=== PATIENT | female | born 1990 | race Two or more races ===

== ENCOUNTER 2016-08-06 16:55 | Emergency (ER) | payer OTHER ==
[~2016-08-06] VITALS: Ht 167.6 cm; Wt 54.4 kg
[~2016-08-06 16:55] MED LIST: ABILIFY15 MG ORAL; ATIVAN0.5 MG ORAL; ATIVAN1 MG ORAL; ATIVAN2 MG ORAL; AZITHROMYCIN250 MG ORAL; CIPROFLOXACIN500 M2 ORAL; COGENTIN1 MG ORAL; IBUPROFEN400 MG ORAL; IBUPROFEN600 MG ORAL; METRONIDAZOLE500 MG ORAL; NKM; PERI-COLACE1 EA PO; PHENAZOPYRIDIN100 MG ORAL; RISPERDAL0.25 MG ORAL; ZYPREXA5 MG ORAL
[2016-08-06 16:57] VITALS: BP 124/81
--- NOTE | 2016-08-06 17:30 | Emergency Room Report ---
History of Present Illness General Chief Complaint: Head Injury Source: Patient Present Illness HPI 25 YO Female presents to the ED c/o hitting the back of her head on a table after bending over earlier today with tenderness to post scalp, no LOC, no vomiting. pt. reports intermittent nausea. rates pain as 3/10 in severity, localized to posterior head. Patient denies taking blood thinning medications. Patient states she has not taken any medication for her pain. Denies CP, Palpitations, LOC, AMS, dizziness, Changes in Vision, Sensation, paresthesias, or a sudden severe headache. Allergies: Coded Allergies: No Known Allergies (Unverified , 11/10/12) Patient History Past Medical History: see triage record Past Surgical History: none Pertinent Family History: none Last Menstrual Period: 07/13/2016 Now: No : 3 Para: 0 Immunizations: UTD Reviewed Nursing Documentation: PMH: Agreed, PSxH: Agreed Nursing Documentation-PMH History Of Psychiatric Problem: Yes Review of Systems All Other Systems: negative except mentioned in HPI Physical Exam Vital Signs Date Time Temp Pulse Resp B/P Pulse Ox O2 Delivery O2 Flow Rate FiO2 08/06/16 16:57 98.1 81 16 124/81 100 Room Air Sp02 EP Interpretation: reviewed, normal General Appearance: no apparent distress, alert, GCS 15, non-toxic Head: normocephalic, other - right posterior occipital hematoma with ttp, 1cm in size. Eyes: bilateral eye EOMI, bilateral eye PERRL, bilateral eye normal inspection ENT: hearing grossly normal, normal pharynx, no angioedema, normal voice Neck: full range of motion, no meningismus, no bony tend, supple/symm/no masses Respiratory: lungs clear, normal breath sounds, speaking full sentences Cardiovascular #1: regular rate, rhythm Musculoskeletal: back normal, gait/station normal, normal range of motion, non- tender Neurologic: alert, oriented x3, responsive, motor strength/tone normal, sensory intact, cerebellar normal, normal gait, speech normal, no pronator Psychiatric: judgement/insight normal, memory normal, mood/affect normal Skin: normal color, no rash, warm/dry, well hydrated Lymphatic: no adenopathy Medical Decision Making PA Attestation Dr. Martinez is my supervising Physician whom patient management has been discussed with. Diagnostic Impression: Primary Impression: Contusion of head Qualified Codes: S00.83XA - Contusion of other part of head, initial encounter ER Course Pt. presents to the ED c/o hitting the back of her head on a table after bending over earlier today with tenderness to post scalp, no LOC, no vomiting. pt. reports intermittent nausea. - Denies Loss of consciousness Ddx considered but are not limited to Fracture, dislocation, concussion Sprain/ Strain/Spasm, contusion, concussion , head injury. Vital signs: are WNL, pt. is afebrile H&PE are most consistent with contusion, no evidence of focal neurological deficit, no loss of consciousness., palpable contusion to right posterior occipital area. ORDERS: none required at this time. PE and HPI do not indicate CT at this time. ED INTERVENTIONS: -D/w Pts reasoning for not doing Head CT, also discussed red flag symptoms to keep an eye out for that would indicate prompt return to the ED. - Pt. verbalizes her understanding and agreement with proposed treatment plan. DISCHARGE: At this time pt. is stable for d/c to home. Will provide printed patient care instructions, and any necessary prescriptions. Care plan and follow up instructions have been discussed with the patient prior to discharge. Last Vital Signs Date Time Temp Pulse Resp B/P Pulse Ox O2 Delivery O2 Flow Rate FiO2 08/06/16 16:57 98.1 16 124/81 100 Room Air 08/06/16 16:57 81 Disposition: HOME, SELF-CARE Condition: Stable Scripts Acetaminophen* (TYLENOL EXTRA STRENGTH*) 500 Mg Tablet 500 MG ORAL Q6H, #20 TAB 0 Refills Prov: Catie Walton 08/06/16 Patient Instructions: Contusion, [id number] Additional Instructions: Take Tylenol as needed for pain as directed. Follow up with PCP in 3-5 days Return sooner to ED if new symptoms occur, or current symptoms become worse. - Please note that this Emergency Department Report was dictated using [employer] case manager technology software, occasionally this can lead to erroneous entry secondary to interpretation by the dictation equipment. Catie Walton August 06, 2016 17:30
[2016-08-06] MEDS ORDERED: TYLENOL EXTRA500 MG ORAL (17:31)
== END 2016-08-06 17:55 | disposition home or self-care (01) ==
LOC: EMR 17:40
DX: S00.83XA Contusion of other part of head, initial encounter (principal); W22.03XA Walked into furniture, initial encounter; Y92.9 Unspecified place or not applicable; Y99.8 Other external cause status
CPT/HCPCS: 99283

== ENCOUNTER 2017-01-02 12:59 | Emergency (ER) | payer OTHER ==
[~2017-01-02] VITALS: Ht 167.6 cm; Wt 49.9 kg
[~2017-01-02 12:59] MED LIST changes: +TYLENOL EXTRA500 MG ORAL
[2017-01-02 14:05] VITALS: BP 132/77
[2017-01-02 14:27] LABS: BASOPHILS % (AUTO) 0.3 % (0.0-2.0); EOSINOPHILS % (AUTO) 0.9 % (0.0-3.0); LYMPHOCYTES % (AUTO) 34.2 % (20.0-45.0); MEAN CORPUSCULAR HEMOGLOBIN 32.3 PG (27.0-31.0); MEAN CORPUSCULAR HGB CONC 33.6 G/DL (32.0-36.0); MEAN CORPUSCULAR VOLUME 96 FL (80-99); MEAN PLATELET VOLUME 6.3 FL (6.5-10.1); MONOCYTES % (AUTO) 5.8 % (1.0-10.0); NEUTROPHILS % (AUTO) 58.7 % (45.0-75.0); PLATELET COUNT 290 K/UL (150-450); RED CELL DISTRIBUTION WIDTH 10.8 % (11.6-14.8); WHITE BLOOD COUNT 6.6 K/UL (4.8-10.8)
[2017-01-02 14:31] LABS: APPEARANCE,URINE CLEAR; KETONES,URINE NEGATIVE (NEGATIVE); LEUKOCYTE ESTERASE ,URINE NEGATIVE (NEGATIVE); NITRITE,URINE NEGATIVE (NEGATIVE); PH,URINE 7 (4.5-8.0); PROTEIN,URINE NEGATIVE (NEGATIVE); UROBILINOGEN,URINE NORMAL MG/DL (0.0-1.0)
[2017-01-02 14:41] LABS: INR 1.1 (0.9-1.1); PROTHROMBIN TIME 11.4 SEC (9.30-11.50)
[2017-01-02 14:53] LABS: ALANINE AMINOTRANSFERASE 13 U/L (3-33); ALBUMIN/GLOBULIN RATIO 1.5 (1.0-2.7); ANION GAP 14 (5-15); ASPARTATE AMINO TRANSFERASE 16 U/L (5-40); CALCIUM 9.5 mg/dL (8.6-10.2); CARBON DIOXIDE 27 mEQ/L (20-30); CHLORIDE 98 mEQ/L (98-107); CREATININE 0.9 mg/dL (0.5-0.9); GLOMERULAR FILTRATION RATE > 60 mL/min (>60); HEMOLYSIS 9; POTASSIUM 3.3 mEQ/L (3.4-4.9); SODIUM 139 mEQ/L (135-145)
[2017-01-02 15:00] VITALS: BP 129/76
[2017-01-02 15:17] VITALS: BP 129/76
--- NOTE | 2017-01-02 22:21 | Emergency Room Report ---
History of Present Illness General Chief Complaint: Syncope Source: Patient Present Illness [facility] The patient is a 26-year-old female presenting for syncopal episode last night. She states that she woke up from sleep, went to the kitchen, felt dizzy, and lower herself to the ground where she became unconscious. She denies hitting her head. She states that she has been feeling more stress recently due to to work and has not been eating or drinking as much as she used to. She denies any pain at this time. She denies nausea, vomiting, fever, chills, blurred vision, abdominal pain, shortness of breath, numbness tingling Allergies: Coded Allergies: No Known Allergies (Unverified , 11/10/12) Patient History Past Medical History: see triage record Pertinent Family History: none Last Menstrual Period: last week Now: No Reviewed Nursing Documentation: PMH: Agreed, PSxH: Agreed Nursing Documentation-PMH Past Medical History: No History, Except For History Of Psychiatric Problem: Yes Review of Systems All Other Systems: negative except mentioned in HPI Physical Exam Vital Signs Date Time Temp Pulse Resp B/P (MAP) Pulse Ox O2 Delivery O2 Flow Rate FiO2 01/02/17 13:03 98.8 84 18 137/97 97 Room Air Sp02 EP Interpretation: reviewed, normal General Appearance: no apparent distress, alert, GCS 15, non-toxic Head: normocephalic, atraumatic Eyes: bilateral eye normal inspection, bilateral eye PERRL ENT: hearing grossly normal, normal pharynx, no angioedema, normal voice Neck: full range of motion, supple/symm/no masses Respiratory: chest non-tender, lungs clear, normal breath sounds, speaking full sentences Cardiovascular #1: regular rate, rhythm, no edema Gastrointestinal: normal bowel sounds, non tender, soft, non-distended, no guarding, no rebound Genitourinary: normal inspection, no CVA tenderness Musculoskeletal: back normal, gait/station normal, normal range of motion, non- tender Neurologic: alert, oriented x3, responsive, motor strength/tone normal, sensory intact, speech normal Psychiatric: judgement/insight normal, memory normal, mood/affect normal, no suicidal/homicidal ideation Skin: normal color, no rash, warm/dry, well hydrated Medical Decision Making PA Attestation Dr. Rothman is my supervising physician. Patient management was discussed with my supervising physician Diagnostic Impression: Primary Impression: Syncope Qualified Codes: R55 - Syncope and collapse ER Course The patient is a 26-year-old female presenting for syncopal episode DDx: , arrhythmia, positional hypotension, vasovagal episode, dehydration PE: No apparent distress. A&Ox4 PERRL. EOMI. Normal mentation. RRR. No MRG Lungs CTA bilat Abdomen: Normal appearance. Non distended. No ecchymosis. Normal BS. Non TTP. No McBurney point tenderness. No guarding. Skin is warm and dry, no rashes. EKG unremarkable All labs unremarkable neg preg The patient is given IV fluids and states that she is feeling much better. She does admit to not drinking as much water she used to She'll be discharged home and needs to follow up with primary doctor. She will take in plenty fluids. ER precautions are given EKG Diagnostic Results EP Interpretation: nsr. no acute findings Rate: normal - 81 Rhythm: NSR ST Segments: no acute changes ASA given to the pt in ED: No PA Scribe Text EKG was reviewed and read with my supervising physician. No acute ST segment changes are seen. Normal rate and rhythm. No acute changes. Last Vital Signs Date Time Temp Pulse Resp B/P (MAP) Pulse Ox O2 Delivery O2 Flow Rate FiO2 01/02/17 15:17 98.8 72 16 129/76 100 Room Air Status: improved Disposition: HOME, SELF-CARE Condition: Improved Referrals: [facility],REFERRING (PCP) Patient Instructions: Syncope Additional Instructions: I discussed my findings with the patient. All questions and concerns have been answered. Treatment and medication compliance have been addressed. I advised the patient that they need to follow up with PMD in 3-5 days. Return to ED if symptoms worsen, new symptoms arise, or if needed for any reason. Patient verbalized understanding of discharge instructions. The patient continued to take in plenty fluids as directed ROSE MARIE FLYNN Jan 02, 2017 22:21
--- NOTE | 2017-01-03 18:02 | Cardiology Report ---
APPROVED REPORT EKG Measurement Heart [id number] Sinus rhythm with sinus arrhythmia with short OH Otherwise normal ECG
== END 2017-01-02 15:17 | disposition home or self-care (01) ==
LOC: EMR 13:41
DX: R55 Syncope and collapse (principal)
CPT/HCPCS: 36415; 80053; 80300; 81003; 81025; 85025; 85610; 85730; 93005; 96360; 99284

== ENCOUNTER 2017-01-22 20:31 | Emergency (ER) | payer OTHER ==
[~2017-01-22] VITALS: Ht 167.6 cm; Wt 51.3 kg
[2017-01-22 21:12] LABS: APPEARANCE,URINE CLEAR; KETONES,URINE NEGATIVE (NEGATIVE); LEUKOCYTE ESTERASE ,URINE NEGATIVE (NEGATIVE); NITRITE,URINE NEGATIVE (NEGATIVE); PH,URINE 6 (4.5-8.0); PROTEIN,URINE NEGATIVE (NEGATIVE); UROBILINOGEN,URINE 1 MG/DL (0.0-1.0)
[2017-01-22] MEDS ORDERED: Meclizine 25mg tab ORAL ONE (21:15)
[2017-01-22 21:19] VITALS: BP 128/86
[2017-01-22] MEDS ORDERED: MECLIZINE HCL25 MG ORAL (22:07)
[2017-01-22] MEDS ORDERED: ZOFRAN ODT4 MG ORAL (22:07)
[2017-01-22] MEDS ORDERED: AMOXICILLIN500 MG ORAL (22:07)
[2017-01-22 22:15] VITALS: BP 126/86
[2017-01-22 22:16] VITALS: BP 128/86
--- NOTE | 2017-01-23 03:17 | Emergency Room Report ---
History of Present Illness General Chief Complaint: Dizziness Source: Patient Present Illness HPI 26-year-old female presents ED complaining of dizziness. Patient states symptoms started a few days ago. Feeling room spinning sensation. Denies any blurry vision. Denies headache. Notes nausea and vomiting. Denies chest pain or shortness of breath. Patient feels fullness in her ears bilaterally. Denies sore throat or cough. Denies fevers or chills. No other aggravating or leading factors. Denies any other associated symptoms Allergies: Coded Allergies: No Known Allergies (Unverified , 11/10/12) Patient History Past Medical History: none Past Surgical History: none Pertinent Family History: none Social History: Denies: smoking, alcohol use, drug use Last Menstrual Period: Last month Now: No Immunizations: UTD Reviewed Nursing Documentation: PMH: Agreed, PSxH: Agreed Nursing Documentation-PMH Past Medical History: No Stated History Review of Systems All Other Systems: negative except mentioned in HPI Physical Exam Vital Signs Date Time Temp Pulse Resp B/P (MAP) Pulse Ox O2 Delivery O2 Flow Rate FiO2 01/22/17 20:35 98.6 82 17 128/86 98 Room Air Sp02 EP Interpretation: reviewed, normal General Appearance: no apparent distress, alert, GCS 15, non-toxic Head: normocephalic, atraumatic Eyes: bilateral eye normal inspection, bilateral eye PERRL ENT: hearing grossly normal, normal pharynx, no angioedema, normal voice, other - bilateral TM bulging, poor light reflex Neck: full range of motion, supple/symm/no masses Respiratory: chest non-tender, lungs clear, normal breath sounds, speaking full sentences Cardiovascular #1: regular rate, rhythm, no edema Gastrointestinal: normal inspection Rectal: deferred Genitourinary: normal inspection Musculoskeletal: normal inspection Neurologic: alert, oriented x3, responsive, motor strength/tone normal, sensory intact, speech normal Psychiatric: judgement/insight normal, memory normal, mood/affect normal, no suicidal/homicidal ideation Skin: normal inspection Lymphatic: normal inspection Medical Decision Making Diagnostic Impression: Primary Impression: Vertigo ER Course 26-year-old female presents ED complaining of dizziness, nausea, bilateral ear fullness Differential-URI, vertigo, UTI Patient placed on stretcher. After initial history, physical exam reveals female in no acute distress. There is bulging TM bilaterally with poor light reflex. Remainder physical exam unremarkable. Patient has no focal neurological deficits UA sent-unremarkable Patient given meclizine and Zofran in ED with symptoms improved. Vertigo likely secondary to ear infection. We'll treated with antibiotics Diagnoses-vertigo Stable and discharged to home with prescription for amoxicillin, Zofran, meclizine. Followup with PMD. Return to ED if symptoms recur or worsen Labs Test 01/22/17 20:46 Urine Color Pale yellow Urine Appearance Clear Urine pH 6 (4.5-8.0) Urine Specific [place] 1.020 (1.005-1.035) Urine Protein Negative (NEGATIVE) Urine Glucose (UA) Negative (NEGATIVE) Urine Ketones Negative (NEGATIVE) Urine Occult Blood Negative (NEGATIVE) Urine Nitrite Negative (NEGATIVE) Urine Bilirubin Negative (NEGATIVE) Urine Urobilinogen 1 MG/DL (0.0-1.0) Urine Leukocyte Esterase Negative (NEGATIVE) Urine HCG, Qualitative Negative Last Vital Signs Date Time Temp Pulse Resp B/P (MAP) Pulse Ox O2 Delivery O2 Flow Rate FiO2 01/22/17 22:16 98.6 82 17 128/86 98 Room Air Status: improved Disposition: HOME, SELF-CARE Condition: Stable Scripts Amoxicillin* (AMOXIL*) 500 Mg Capsule 500 MG ORAL THREE TIMES A DAY, #21 CAP Prov: TING VILLEGAS M.D. 01/22/17 Ondansetron Odt* (ZOFRAN ODT*) 4 Mg Tab.rapdis 4 MG ORAL Q6H Y for Nausea & Vomiting, #30 TAB 0 Refills Prov: TING VILLEGAS M.D. 01/22/17 Meclizine Hcl* (MECLIZINE*) 25 Mg Tablet 25 MG ORAL THREE TIMES A DAY, #20 TAB Prov: TING VILLEGAS M.D. 01/22/17 Patient Instructions: Vertigo TING VILLEGAS M.D. Jan 23, 2017 03:17
== END 2017-01-22 22:17 | disposition home or self-care (01) ==
LOC: EMR 21:00
DX: R42 Dizziness and giddiness (principal)
CPT/HCPCS: 81003; 81025; 99284